=== PATIENT | female | born 1955 | race Caucasian/White ===

== ENCOUNTER 2017-05-20 09:09 | Day surgery (SDC) | payer BC ==
[~2017-05-20 09:09] MED LIST: Acetaminophen TAB* 325 MG PO PRN; Buffered Lidocaine 0.9% SYRIN* 5 ML/SYR SYRINGE INTRADERM ONE
[2017-05-20] MEDS ORDERED: Midazolam* 1 MG/ML 2 ML VIAL (2 MG) ONE (10:32)
[2017-05-20 12:12] VITALS: BP 119/76
[2017-05-20] MEDS ORDERED: Lidocaine 1% MPF* 2 ML VIAL ONE (14:51)
[2017-05-20] MEDS ORDERED: Cyclopentolate 1% OPTH.SOL* 2 ML BTL ONE (14:51)
[2017-05-20] MEDS ORDERED: Buffered Lidocaine 0.9% SYRIN* 5 ML/SYR SYRINGE ONE (14:51)
[2017-05-20] MEDS ORDERED: Neomycin/Polymy/Dex OPHTH.OIN* 3.5 GM ONE (14:51)
[2017-05-20] MEDS ORDERED: acetaZOLAMIDE TAB* 250 MG ONE (14:51)
[2017-05-20] MEDS ORDERED: Tetracaine 0.5% OPTH.SOL 4 ML* 1 DROP BTL ONE (14:51)
[2017-05-20] MEDS ORDERED: Tropicamide 1% OPTH.SOL* BTL ONE (14:51)
[2017-05-20] MEDS ORDERED: Phenylephrine 2.5% OPTH.SOL* 2 ML BTL ONE (14:51)
[2017-05-20] MEDS ORDERED: Povidone Iodine 5% OPTH* 30 ML BTL ONE (14:51)
[2017-05-20] MEDS ORDERED: Ketorolac 0.5% OPHTH (NF) 0.5 % 5 ML BTL ONE (14:51)
--- NOTE | 2017-05-21 00:43 | OP ---
DATE OF OPERATION: 05/20/17 [facility] DATE OF : 53 SURGEON: Kameron Chambers MD ANESTHESIOLOGIST: Griffin Thomas MD ANESTHESIA: MAC PRE-OP DIAGNOSIS: Cataract, left eye. POST-OP DIAGNOSIS: Cataract, left eye. PROCEDURE PERFORMED: Cataract surgery of the left eye. ANESTHESIA: Monitored anesthesia care. IMPLANTS: SN60WF 20.5 diopter lens to the left eye. COMPLICATIONS: None. DESCRIPTION OF PROCEDURE: The patient was given phenylephrine 2.5% and cyclopentolate 1% eye drops to the operative eye in the preoperative area. The patient was brought to the operating room where a time-out was taken to identify the correct patient, site, and side of the surgery. The patient's left eye was prepped and draped in the usual sterile fashion with 5% Betadine. A second time- out was taken to verify the correct patient, site and side of the surgery, and correct lens selection. A lid speculum was placed to the left eye. A 1-mm paracentesis blade was used to make a clear corneal incision in the inferotemporal position. Preservative-free 1% lidocaine was injected into the anterior chamber. DisCoVisc was then injected into the anterior chamber. A 2.75-mm keratome blade was used to make a triplanar incision at the superotemporal position. A cystotome initiated a capsulorrhexis, which was completed with Utrata forceps in a continuous and curvilinear manner. Hydrodissection of the lens was performed with BSS on a cannula. The lens could be spun in the capsular bag. The phacoemulsification handpiece was used with a [id number] technique to remove the nucleus in its entirety with 8.13 CDE. The I/A handpiece then removed the residual cortical lens material. DisCoVisc was injected to inflate the capsular bag. The planned SN60WF 20.5 diopter lens was injected into the capsular bag. The residual DisCoVisc was removed from the eye with the I/A handpiece. The corneal incisions were hydrated and no leaks occurred at physiologic pressure around 20 mmHg per palpation. The lid speculum was removed and drapes removed. Maxitrol ointment was placed on the surface of the operative eye. An adhesive patch and shield was placed on the operative eye. The patient was taken to the postoperative area in stable condition. [id number]/[facility] #: [id number] MTDPatric
== END 2017-05-20 12:05 | disposition home or self-care (01) ==
LOC: OREAST 09:09
PROVIDERS: ATTEND Student in an Organized Health Care Education/Training Program
DX: H25.12 Age-related nuclear cataract, left eye (principal); H04.123 Dry eye syndrome of bilateral lacrimal glands; I95.1 Orthostatic hypotension
CPT/HCPCS: A9270-GY; J2250; V2632

== ENCOUNTER 2017-05-29 08:46 | Day surgery (SDC) | payer BC ==
[2017-05-29] MEDS ORDERED: fentaNYL* 50 MCG/ML 2 ML VIAL (100 MCG VIAL) ONE (09:30)
[2017-05-29] MEDS ORDERED: Midazolam* 1 MG/ML 2 ML VIAL (2 MG) ONE (09:30)
[2017-05-29] MEDS ORDERED: Ondansetron INJ* 2 MG/ML VIAL ONE (10:32)
[2017-05-29] MEDS ORDERED: Cyclopentolate 1% OPTH.SOL* 2 ML BTL ONE (10:55)
[2017-05-29] MEDS ORDERED: Phenylephrine 2.5% OPTH.SOL* 2 ML BTL ONE (10:55)
[2017-05-29] MEDS ORDERED: Lidocaine 1% MPF* 2 ML VIAL ONE (10:55)
[2017-05-29] MEDS ORDERED: Tetracaine 0.5% OPTH.SOL 4 ML* 1 DROP BTL ONE (10:55)
[2017-05-29] MEDS ORDERED: acetaZOLAMIDE TAB* 250 MG ONE (10:55)
[2017-05-29] MEDS ORDERED: Neomycin/Polymy/Dex OPHTH.OIN* 3.5 GM ONE (10:55)
[2017-05-29] MEDS ORDERED: Povidone Iodine 5% OPTH* 30 ML BTL ONE (10:55)
[2017-05-29] MEDS ORDERED: Tropicamide 1% OPTH.SOL* BTL ONE (10:55)
[2017-05-29] MEDS ORDERED: Flurbiprofen 0.03% OPTH.SOL* 2.5 ML BTL ONE (10:55)
[2017-05-29] MEDS ORDERED: Buffered Lidocaine 0.9% SYRIN* 5 ML/SYR SYRINGE ONE (10:55)
[2017-05-29 10:56] VITALS: BP 109/80
--- NOTE | 2017-05-29 14:25 | OP ---
DATE OF OPERATION: 05/29/17 - [facility] DATE OF : 53 SURGEON: Kameron Chambers MD ANESTHESIOLOGIST: Dr. Bass ANESTHESIA: Monitored anesthesia care. PRE-OP DIAGNOSIS: Cataract, right eye. POST-OP DIAGNOSIS: Cataract, right eye. OPERATIVE PROCEDURE: Cataract surgery of right eye. IMPLANTS: SN60WF 20.0 diopter lens to the right eye. COMPLICATIONS: None. DESCRIPTION OF PROCEDURE: The patient was given phenylephrine 2.5% and cyclopentolate 1% eye drops to the operative eye in the preoperative area. The patient was brought to the operating room, where a time-out was taken to identify the correct patient, site, and side of surgery. The patient's right eye was prepped and draped in the usual sterile fashion with 5% Betadine. A second time- out was taken to verify the correct patient, site, and side of surgery and correct lens selection. A lid speculum was placed to the right eye. A 1-mm paracentesis blade was used to make a clear corneal incision in the superotemporal position. Preservative-free 1% lidocaine was injected into the anterior chamber. DisCoVisc was then injected into the anterior chamber. A 2.75-mm keratome blade was used to make a triplanar incision at the inferotemporal position. A cystotome initiated a capsulorrhexis, which was completed with Utrata forceps in a continuous and curvilinear manner. Hydrodissection of the lens was performed with BSS on a cannula. The lens could be spun in the capsular bag. The phacoemulsification handpiece was used with a [id number] technique to remove the nucleus in its entirety with 7.19 CDE. The I/A handpiece then removed the residual cortical lens material. DisCoVisc was injected to inflate the capsular bag. The planned SN60WF 20.0 diopter lens was then injected into the capsular bag. The residual DisCoVisc was removed from the eye with the I/A handpiece. The corneal incisions were hydrated and no leaks occurred at physiologic pressure around 20 mmHg per palpation. The lid speculum was removed and drapes removed. Artificial tear ointment was placed to the surface of the operative eye. An adhesive patch and shield was then placed on the operative eye. The patient was taken to the postoperative area in stable condition. [id number]/[facility] #: [id number] MTDPatric
== END 2017-05-29 10:52 | disposition home or self-care (01) ==
LOC: OREAST 08:46
PROVIDERS: ATTEND Student in an Organized Health Care Education/Training Program
DX: H25.11 Age-related nuclear cataract, right eye (principal); Z96.1 Presence of intraocular lens; H04.123 Dry eye syndrome of bilateral lacrimal glands; G43.909 Migraine, unspecified, not intractable, without status migrainosus; F32.9 Major depressive disorder, single episode, unspecified; I95.1 Orthostatic hypotension
CPT/HCPCS: A9270-GY; J2250; J2405; J3010; V2632

== ENCOUNTER 2017-11-10 16:29 | Inpatient (IN) | payer BC ==
[2017-11-10 18:05] LABS: ABS Basophils 0.1 10^3/ul (0-0.2); ABS Eosinophils 0.2 10^3/ul (0-0.6); ABS Lymphocytes 1.5 10^3/ul (1.0-4.8); ABS Monocytes 0.8 10^3/ul (0-0.8); ABS Neutrophils 4.4 10^3/ul (1.5-7.7); ABS Nucleated RBC 0 10^3/ul; Eosinophil % 2.8 % (0-6); Hematocrit 37 % (35-47); Hemoglobin 12.3 g/dl (12.0-16.0); Lymphocyte % 21.8 % (25-47); Mean Corpuscular HGB Conc 34 g/dl (31-36); Mean Corpuscular Hemoglobin 32 pg (27-31); Mean Corpuscular Volume 95 fL (80-97); Mean Platelet Volume 9 um3 (7.4-10.4); Nucleated Red Blood Cells % 0.1; Platelet Count 257 10^3/ul (150-450); Red Blood Count 3.85 10^6/ul (4.0-5.4); Red Cell Distribution Width 13 % (10.5-15)
[2017-11-10 18:19] LABS: EGFR Non-African American 53.5 (>60)
[2017-11-10 19:04] LABS: Urine Appearance Clear; Urine Blood Negative (Negative); Urine Color Straw; Urine Ketones Negative (Negative); Urine Protein Negative (Negative); Urine Specific Gravity 1.006 (1.010-1.030); Urine Urobilinogen Negative (Negative)
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
--- NOTE | 2017-11-11 01:02 | ED ---
Rachel Go Abhishek, scribed for Sherry Johnson MD on 11/11/17 at 0032 . Progress - Progress Note Progress Note: The pt was signed out from Dr. Reyna and was pending mental health evaluation. Upon completing MHE, the pt will be dx with psychosis NOS. The pt will be discharged home. - Consult/PCP Time Called: 19:29 Course/Dx - Diagnoses Provider Diagnoses: Unspecified psychosis The documentation as recorded by the Rachel santiago Abhishek accurately reflects the service I personally performed and the decisions made by Alex mcdonnell Abdul, MD.
[2017-11-11] MEDS ORDERED: Al Hydrox/Mg Hydrox/Simet LIQ* 30 ML UDC PO PRN (01:53)
[2017-11-11] MEDS ORDERED: Haloperidol TAB* 5 MG PO ONE (02:00)
[2017-11-11] MEDS: Acetaminophen TAB* 325 MG PO PRN ×3 (05:23→21:28)
[2017-11-11] MEDS: Vitamin THERAPEUTIC TAB PO SCH (07:53)
--- NOTE | 2017-11-11 19:35 | HP ---
HISTORY AND PHYSICAL: DATE OF ADMISSION: 11/11/17 ATTENDING PROVIDER: Dr. Junior * (DICTATED BY AUBREY GR, PACO) JUSTIFICATION FOR ADMISSION: Safety: Stacia is struggling with psychosis and poor judgment. CHIEF COMPLAINT: "I am still messed up, I feel like I should be here for a while." HISTORY OF PRESENT ILLNESS: Stacia is a 62-year-old white female for 30 plus years, brought in by her to the emergency room due to significant concerns from her daughter and her about her increasingly disorganized thoughts.. She had been staying with her daughter in [place], [place], which is about an hour from [place], where her daughter works. What first alarmed her daughter, who she was staying with, was that she had been starting to try to put together a new given name for herself by putting together different pieces of names of other people in her family. This is not unique to her thought pattern; she likes to put together different pieces of poetry and different pieces of words and books to try to create transcendent pieces of information and meaningfulness. Nevertheless, it is unclear how successful she is in achieving this goal. Upon interview, she has slow speech. She has difficulty finding words. She does not really make a lot of sense. She has a goal of painting and reading. She said that after she had cataract surgery recently, she was able to read afterward. Another aspect of her presentation is that she describes paranoia, which has somewhat resolved. She said that she believes others were her enemies, but now she knows they were trying to help. Still, she does report feeling ill and she also states "I am not crazy." Stacia has been reported by her to not have been at her psychiatric baseline for the last two years. She has not been functioning well, he says. Her daughter has also noticed this and noticed an exacerbation of symptoms when Stacia was visiting her. Her daughter brought her back to Stacia's , concerned about her mom's behavior. From her daughter's reaction to her mother's bizarre behavior, it would appear that this is a significant variation from typical behavior. Her primary care doctor followed her treatment with perphenazine 8 mg following her latest (2008) admission to the [facility]. Stacia believed that it was getting in the way of her ability to create art, so she asked to have it halved and then discontinued. The timeline for this discontinuation is not clear; nevertheless, it has led to this admission. Stacia's brought her to the Emergency Department. The concerning behaviors included the desire to create a new name, a bizarre belief discovered by a member of staff that she is considering removing breast implants from when she was age 32 to so that she can deliver the eucharist in her most original body, her tendency to try to connect sentences which are nearly coherent into incoherent paragraphs, retarded speech, and very abstract topics that lack pertinence to the topic at hand. She denies hearing or seeing things that aren't there. PAST MEDICAL HISTORY: She has had cataract surgery in both eyes. PSYCHIATRIC HISTORY: She has been inpatient in psychiatry 2 times, once in 2007 and once in 2008. In 2007, she had an overdose of Tylenol and received a diagnosis of depression. In 2008, she was given a psychosis diagnosis. She was advised to follow up in the community with Yelitza Cloud, PACO, PhD, but she thought she didn't need psychiatric services and that seeing Yelitza Cloud was too expensive. She has not been psychiatrically medicated since that discontinuation from Dr. Kiser mentioned in the HPI. She denies using tobacco, excessive alcohol, or illicit drugs. She has not been suicidal since her 2007 admission and has never been violent or homicidal. She denies that there has ever been physical, emotional, or sexual abuse in her life. SOCIAL HISTORY: From previous H and P's, she finished high school, but she had a difficult time there. She has had various jobs that have not gone well, as she perseverates on details that are not relevant to the task at hand. She has been to her for more than 30 years and has two children, one a daughter who lives 3-4 hours away in [place], [place] where she visits her. 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 She began reading voraciously after her cataract surgery. She collects quotes from her readings to put together in order to make an even more inspiring text than the classics she's reading. She is spiritually active, at least at this time, taking solace in a visit from the anesthesiology medical doctor here on the [facility]. MENTAL STATUS EXAM: Stacia is casually groomed. She has long blondish- lima miranda that she plays with. She appears to be a little bit confused. She is sitting quite still, slow movements. She is very cooperative with me, very pleasant. Her speech is slow. Her volume is a little bit low. She talks maybe a little circumstantially. She has a labile affect. She was crying in the milieu before I met with her, but then she was very happy and wanted to sit in the sun and described enjoying the sunshine most of the time. Her thought processes are not clear. She is struggling to put thoughts together. She has very little insight into what she is doing other than having a goal of wanting to paint again. She denies being homicidal or suicidal. She is not having any hallucinations. She knows that there is something wrong with her thoughts and the way she feels. Her insight is reasonably good. Her judgment on the other hand, is impaired. She is alert and oriented. She is awake, but she is sleepy. I suspect her intellect may be average to low as she is struggling with words as well as it having been noted/questioned in previous H and P's. PHYSICAL EXAMINATION Please refer to the ER exam and laboratory data that was obtained less than 24 hours ago. Diagnosis: Redfox I: Schizophrenia Redfox II: deferred Assessment: 62-y.o. white female with a history of both depression and psychosis who returns to the hospital behavioral unit after two prior admissions in 2007 and 2008. She presents with psychosis: bizarre beliefs, some difficulty speaking coherently (sentences trail off and the meaning is not cohesive). Her current focus is to create a new name for herself based on pieces of names of her family. She is also interested in beginning to work on her art again. Plan: Admit to unit with q15 minute safety checks, full code. 9.39 status. Stacia is encouraged to participate in supportive and milieu therapy. Estimated length of stay is 5-10 days. Medications will be titrated to more effective dose and she will be monitored for mood and thought content. Discharge planning will include family involvement and obtaining outpatient providers. We will begin Abilify (aripiprazole) 5 mg qHS to address psychotic symptoms. AUBREY GR, TUMOR REGISTRAR [id number]/[facility] #: [id number] [facility]ANG[facility] TISCH HOSPITALPatric
[2017-11-11] MEDS: ARIPiprazole TAB* 5 MG PO SCH (21:28)
[2017-11-12] MEDS: Vitamin THERAPEUTIC TAB PO SCH (08:44)
--- NOTE | 2017-11-12 13:44 | PN ---
Subjective - Subjective Date of Service: 11/12/17 Service Type: 01355 Hosp care 15 min low complexity Subjective: Laurel, who is now asking to be called "Friend" until she constructs a new name, reports doing well this afternoon. She is preoccupied with thoughts of her daughter (an equine nurse) and her , Alana. She reports feeling clearer "in my head" but that is highly unlikely considering that she took only 5 mg of Abilify once last night. When asked what her concerns are, she is primarily concerned with Alana's mental health care. She is also worried that she will not longer be able to see Dr. Kiser. This morning, a staff member reported that she was concerned about "delivering the eucharist." She didn't mention this or any concerns about herself, despite being asked directly. She remains happy enough, likes talking on the phone, and is quite difficult to keep on track. Psychosis persists. Objective - Appearance Dysmorphic Features: No Hygiene: Normal Grooming: Fairly Well Kept - Behavior Psychomotor Activities: Normal Exhibits Abnormal Movement: No - Attitude and Relatedness Attitude and Relatedness: Cooperative Eye Contact: Good - Speech Quality: Unpressured Latencies: Short Quantity: Appropriate - Mood Patient's Decription of Mood: "Great" - Affect Observed Affect: Good Affect Consistent with: Euthymia - Thought Process Patient's Thought Process: Loose Associations Thought Content: No Passive Wish, No Suicidal Planning, No Homicidal Ideation, No Paranoid Ideation - Sensorium Experiencing Hallucinations: No, Sensorium is Clear Type of Hallucinations: Visual: No, Auditory: No, Command: No - Level of Consciousness Level of Consciousness: Alert Orientation: Yes Intact, Yes Orientated to Time, Yes Orientated to Place, Yes Orientated to Person - Impulse Control Impulse Control: Intact - Insight and Judgement Insight and Judgement: Impaired - Group Participation Particating in Group Activities: Yes - Medication Management Medication Management Adherence: Yes Plan - Plan Treatment Plan: Name: LAUREL DUDLEY Birthdate: 1955 [id number] Medications: Current Medications Acetaminophen (Tylenol Tab*) 650 mg PO Q4H PRN PRN Reason: PAIN or TEMP > 101 F Last Admin: 11/11/17 21:28 Dose: 650 mg Al Hydrox/Mg Hydrox/Simethicone (Maalox Plus*) 30 ml PO Q4H PRN PRN Reason: INDIGESTION Aripiprazole (Abilify Tab*) 5 mg PO BEDTIME [facility] Last Admin: 11/11/17 21:28 Dose: 5 mg Multivitamins (Theragran Tab*) 1 tab PO DAILY [facility] Last Admin: 11/12/17 08:44 Dose: 1 tab - Discharge Plan Discharge Plan: Outpatient Follow Up Outpatient Program: [facility]
[2017-11-12] MEDS: ARIPiprazole TAB* 5 MG PO SCH (19:42)
[2017-11-13] MEDS: Vitamin THERAPEUTIC TAB PO SCH (09:07)
[2017-11-13] MEDS: Artificial Tears* 15 ML BTL BOTH EYES PRN (12:15)
--- NOTE | 2017-11-13 13:08 | PN ---
MHU: Group Therapy Note - Service Type Service Type: [id number] Group Psychotherapy - Cognitive Behavioral Group Therapy ( CBT):Patient was attentive and participatory in CBT programming this morning, and remained in good behavioral control. Patient expressed positive insights regarding relevant treatment interventions and goals.
--- NOTE | 2017-11-13 16:16 | PN ---
Subjective - Subjective Service Type: [id number] Hosp care 15 min low complexity Subjective: Laurel, who is now going by Tom, I believe, appears to have her thoughts clearing a bit. She is quite supported by her and she talks about him a lot. We discuss increasing her Abilify to 10 mg and discuss pros and cons of the medication. She is agreeable to the change and eager to have clearer thoughts. We talked about using Abilify as a method of doing that. She also reports feeling depressed. Objective - Appearance Appearance: Well Developed/Nourished Dysmorphic Features: No Hygiene: Normal Grooming: Fairly Well Kept - Behavior Psychomotor Activities: Normal Exhibits Abnormal Movement: No - Attitude and Relatedness Attitude and Relatedness: Cooperative Eye Contact: Good - Speech Quality: Unpressured Latencies: Short Quantity: Appropriate - Mood Patient's Decription of Mood: "Good" - Affect Affect Consistent with: Euthymia - Thought Process Thought Content: No Passive Wish, No Suicidal Planning, No Homicidal Ideation, No Paranoid Ideation - Sensorium Experiencing Hallucinations: No, Sensorium is Clear Type of Hallucinations: Visual: No, Auditory: No, Command: No - Level of Consciousness Level of Consciousness: Alert Orientation: Yes Intact, Yes Orientated to Time, Yes Orientated to Place, Yes Orientated to Person - Impulse Control Impulse Control: Intact - Insight and Judgement Insight and Judgement: Fair - Group Participation Particating in Group Activities: Yes - Medication Management Medication Management Adherence: Yes Assessment - Assessment Merits Inpatient Hospitalization: For Stabilization Plan - Plan Treatment Plan: Name: LAUREL DUDLEY Birthdate: 1955 [id number] Continue acute intensive psychiatric treatment. Medications: Current Medications Acetaminophen (Tylenol Tab*) 650 mg PO Q4H PRN PRN Reason: PAIN or TEMP > 101 F Last Admin: 11/11/17 21:28 Dose: 650 mg Al Hydrox/Mg Hydrox/Simethicone (Maalox Plus*) 30 ml PO Q4H PRN PRN Reason: INDIGESTION Aripiprazole (Abilify Tab*) 10 mg PO BEDTIME [facility] Multivitamins (Theragran Tab*) 1 tab PO DAILY [facility] Last Admin: 11/13/17 09:07 Dose: 1 tab Polyvinyl Alcohol (Polyvinyl Alcohol 1.4% Opth*) 1 drop BOTH EYES Q2H PRN PRN Reason: DRY EYE Last Admin: 11/13/17 12:15 Dose: 2 drp - Discharge Plan Discharge Plan: Outpatient Follow Up
[2017-11-13] MEDS: ARIPiprazole TAB* 5 MG PO SCH (20:17)
[2017-11-14] MEDS: Vitamin THERAPEUTIC TAB PO SCH (08:08)
--- NOTE | 2017-11-14 10:54 | PN ---
Subjective - Subjective Service Type: Collateral from Artemio, Subjective: Artemio, Laurel's , requested that I call him ([phone]). In a 30 minute phone call he expressed his concern about her. Highlights of the conversation include the following: Name change to Laurel was an attempt to bury an unpleasant past. Her son-in-law's ~2 years ago is still bothering her significantly and she is emotionally triggered by seeing things like emergency vehicles. Laurel likes to "[knit] together a narrative that is totally irrational" of reality and literature. Artemio is very concerned that she is having suicidal thoughts, although Laurel denies it vehemently to Artemio. She misses having family and longs to have a friend group as she did years ago. This is echoed by Laurel herself in conversation. Artemio reports that Dr. Kiser is afraid of him because he is verbally combative when he is trying to advocate for her. He worries that he is not sensitive enough to her. He used to be a administrative technician and engage in spending time with a motorcycle club. Plan - Plan Treatment Plan: Name: LAUREL DUDLEY Birthdate: 1955 [id number] Continue acute intensive psychiatric treatment. Medications: Current Medications Acetaminophen (Tylenol Tab*) 650 mg PO Q4H PRN PRN Reason: PAIN or TEMP > 101 F Last Admin: 11/11/17 21:28 Dose: 650 mg Al Hydrox/Mg Hydrox/Simethicone (Maalox Plus*) 30 ml PO Q4H PRN PRN Reason: INDIGESTION Aripiprazole (Abilify Tab*) 10 mg PO BEDTIME [facility] Last Admin: 11/13/17 20:17 Dose: 10 mg Multivitamins (Theragran Tab*) 1 tab PO DAILY [facility] Last Admin: 11/14/17 08:08 Dose: 1 tab Polyvinyl Alcohol (Polyvinyl Alcohol 1.4% Opth*) 1 drop BOTH EYES Q2H PRN PRN Reason: DRY EYE Last Admin: 11/13/17 12:15 Dose: 2 drp
[2017-11-14] MEDS: Acetaminophen TAB* 325 MG PO PRN (13:49)
--- NOTE | 2017-11-14 16:16 | PN ---
Subjective - Subjective Date of Service: 11/14/17 Service Type: [id number] Hosp care 25 min moderate complexity Subjective: Stacia, who is apparently in the process of changing her name although which name has not been nailed down, is cheerful and pleasant in conversation. Her , Artemio, comes in from 08-30 to visit with Stacia and continues to want additional support. She would like to be discharged today. We compromise on the option to leave tomorrow. She is not reporting hallucinations to me. Her thoughts are clearer and she is motivated to go home to her studio and create art. She wants to use pastels rather than the acrylics and oils she'd used before. She is also considering using watercolors, but believes it would be better to use something that she's familiar with. Objective - Appearance Appearance: Well Developed/Nourished Dysmorphic Features: No Hygiene: Normal Grooming: Fairly Well Kept - Behavior Psychomotor Activities: Normal Exhibits Abnormal Movement: No - Attitude and Relatedness Attitude and Relatedness: Child Like Eye Contact: Good - Speech Quality: Unpressured Latencies: Short Quantity: Appropriate - Mood Patient's Decription of Mood: "Great" - Affect Observed Affect: Expansive Affect Consistent with: Euthymia - Thought Process Patient's Thought Process: Coherent, Goal Directed Thought Content: No Passive Wish, No Suicidal Planning, No Homicidal Ideation, No Paranoid Ideation - Sensorium Experiencing Hallucinations: No, Sensorium is Clear Type of Hallucinations: Visual: No, Auditory: No, Command: No - Level of Consciousness Level of Consciousness: Alert Orientation: Yes Intact, Yes Orientated to Time, Yes Orientated to Place, Yes Orientated to Person - Impulse Control Impulse Control: Intact - Insight and Judgement Insight and Judgement: Fair - Group Participation Particating in Group Activities: Yes - Medication Management Medication Management Adherence: Yes Assessment - Assessment Merits Inpatient Hospitalization: For Stabilization Clinical Impression: Patricas latencies are shorter and fewer. Her train of thought is more linear, although there are still some oddities to her topic choice which is likely consistent with her speech when she is well. Her thoughts are clearing and she describes having a clearer head. She is also requesting discharge. Plan - Plan Treatment Plan: Name: STACIA DUDLEY Birthdate: 1955 [id number] Continue acute intensive psychiatric treatment. Medications: Current Medications Acetaminophen (Tylenol Tab*) 650 mg PO Q4H PRN PRN Reason: PAIN or TEMP > 101 F Last Admin: 11/14/17 13:49 Dose: 650 mg Al Hydrox/Mg Hydrox/Simethicone (Maalox Plus*) 30 ml PO Q4H PRN PRN Reason: INDIGESTION Aripiprazole (Abilify Tab*) 10 mg PO BEDTIME [facility] Last Admin: 11/13/17 20:17 Dose: 10 mg Fludrocortisone Acetate (Florinef Tab*) 0.2 mg PO DAILY [facility] Multivitamins (Theragran Tab*) 1 tab PO DAILY [facility] Last Admin: 11/14/17 08:08 Dose: 1 tab Polyvinyl Alcohol (Polyvinyl Alcohol 1.4% Opth*) 1 drop BOTH EYES Q2H PRN PRN Reason: DRY EYE Last Admin: 11/13/17 12:15 Dose: 2 drp Sertraline HCl (Zoloft*) 100 mg PO DAILY [facility] - Discharge Plan Discharge Plan: Outpatient Follow Up
--- NOTE | 2017-11-14 16:54 | PN ---
MHU: Group Therapy Note - Service Type Service Type: [id number] Group Psychotherapy - Medication Education Group: Patient was attentive and participatory in group, and remained in good behavioral control. Patient expressed positive insights regarding relevant treatment interventions. Patient stated understanding of material discussed and had appropriate questions.
[2017-11-14] MEDS: ARIPiprazole TAB* 5 MG PO SCH (20:54)
[2017-11-14] MEDS: Artificial Tears* 15 ML BTL BOTH EYES PRN (20:54)
[2017-11-15] MEDS: Sertraline* 100 MG TAB PO SCH (08:55)
[2017-11-15] MEDS: Fludrocortisone Acetate TAB* 0.1 MG PO SCH (08:55)
[2017-11-15] MEDS: Vitamin THERAPEUTIC TAB PO SCH (08:55)
[2017-11-15] MEDS: Artificial Tears* 15 ML BTL BOTH EYES PRN (11:00)
--- NOTE | 2017-11-15 17:46 | PN ---
Subjective - Subjective Service Type: 45711 Hosp care 25 min moderate complexity Subjective: Spoke with Laurel and her regarding the need to stay over the weekend and into Saturday, with the earliest discharge at noon on Saturday,, but to be re-evaluated at that time. Laurel was agreeable to the weekend stay, as was her . Also, she was agreeable to starting 300 mg of Abilify Maintena tonight. She is pleased to be observed while she is experiencing potential side effects of the new medication. She is reported to have been somewhat disorganized in groups today. She is pleasant and seems quite happy. She was delighted to see her . Objective - Appearance Appearance: Well Developed/Nourished Dysmorphic Features: No Hygiene: Normal Grooming: Fairly Well Kept - Behavior Psychomotor Activities: Normal Exhibits Abnormal Movement: No - Attitude and Relatedness Attitude and Relatedness: Cooperative Eye Contact: Good - Speech Quality: Unpressured Latencies: Normal Quantity: Appropriate - Mood Patient's Decription of Mood: "Great" - Affect Observed Affect: Expansive Affect Consistent with: Euthymia - Thought Process Thought Content: No Passive Wish, No Suicidal Planning, No Homicidal Ideation, No Paranoid Ideation - Sensorium Experiencing Hallucinations: No, Sensorium is Clear - Level of Consciousness Level of Consciousness: Alert Orientation: Yes Intact, Yes Orientated to Time, Yes Orientated to Place, Yes Orientated to Person - Impulse Control Impulse Control: Intact - Insight and Judgement Insight and Judgement: Impaired - Group Participation Particating in Group Activities: Yes - Medication Management Medication Management Adherence: Yes Assessment - Assessment Merits Inpatient Hospitalization: For Stabilization, For Ongoing Evaluation Clinical Impression: Laurel's latencies are shorter and fewer. Her train of thought is more linear, although there are still some oddities to her topic choice which is likely consistent with her speech when she is well. Her thoughts are clearing and she describes having a clearer head. She is also requesting discharge. Plan - Plan Treatment Plan: Name: LAUREL DUDLEY Birthdate: 1955 [id number] Continue acute intensive psychiatric treatment. Continued Medication Management: Different Medication Medications: Current Medications Acetaminophen (Tylenol Tab*) 650 mg PO Q4H PRN PRN Reason: PAIN or TEMP > 101 F Last Admin: 11/14/17 13:49 Dose: 650 mg Al Hydrox/Mg Hydrox/Simethicone (Maalox Plus*) 30 ml PO Q4H PRN PRN Reason: INDIGESTION Aripiprazole (Abilify Tab*) 10 mg PO BEDTIME [facility] Last Admin: 11/14/17 20:54 Dose: 10 mg Aripiprazole (Abilify Maintena (Nf)) 300 mg IM Q28D [facility] Fludrocortisone Acetate (Florinef Tab*) 0.2 mg PO DAILY [facility] Last Admin: 11/15/17 08:55 Dose: 0.2 mg Multivitamins (Theragran Tab*) 1 tab PO DAILY [facility] Last Admin: 11/15/17 08:55 Dose: 1 tab Polyvinyl Alcohol (Polyvinyl Alcohol 1.4% Opth*) 1 drop BOTH EYES Q2H PRN PRN Reason: DRY EYE Last Admin: 11/15/17 11:00 Dose: 1 drp Sertraline HCl (Zoloft*) 100 mg PO DAILY [facility] Last Admin: 11/15/17 08:55 Dose: 100 mg - Discharge Plan Discharge Plan: Outpatient Follow Up
[2017-11-15] MEDS: ARIPiprazole TAB* 5 MG PO SCH (20:05)
[2017-11-16] MEDS: Fludrocortisone Acetate TAB* 0.1 MG PO SCH (08:09)
[2017-11-16] MEDS: Vitamin THERAPEUTIC TAB PO SCH (08:09)
[2017-11-16] MEDS: Sertraline* 100 MG TAB PO SCH (08:09)
[2017-11-16] MEDS: Acetaminophen TAB* 325 MG PO PRN (12:17)
[2017-11-16] MEDS: ARIPiprazole TAB* 5 MG PO SCH (20:34)
[2017-11-17] MEDS: Acetaminophen TAB* 325 MG PO PRN (07:40)
[2017-11-17] MEDS: Fludrocortisone Acetate TAB* 0.1 MG PO SCH (07:40)
[2017-11-17] MEDS: Vitamin THERAPEUTIC TAB PO SCH (07:40)
[2017-11-17] MEDS: Sertraline* 100 MG TAB PO SCH (07:40)
[2017-11-17] MEDS: Benzocaine/Menthol LOZ* 1 LOZENGE PO PRN (13:12)
[2017-11-17] MEDS: ARIPiprazole TAB* 5 MG PO SCH (20:53)
[2017-11-18] MEDS: Acetaminophen TAB* 325 MG PO PRN (04:50)
[2017-11-18] MEDS: Artificial Tears* 15 ML BTL BOTH EYES PRN (04:50)
[2017-11-18 07:43] VITALS: BP 120/76
[2017-11-18] MEDS: Fludrocortisone Acetate TAB* 0.1 MG PO SCH (08:20)
[2017-11-18] MEDS: Sertraline* 100 MG TAB PO SCH (08:20)
[2017-11-18] MEDS: Vitamin THERAPEUTIC TAB PO SCH (08:20)
[2017-11-18] MEDS: Benzocaine/Menthol LOZ* 1 LOZENGE PO PRN (08:21)
--- NOTE | 2017-11-18 11:36 | PN ---
MHU: Group Therapy Note - Service Type Service Type: [id number] Group Psychotherapy - Cognitive Behavioral Group Therapy ( CBT):Patient was attentive and participatory in CBT programming this morning, and remained in good behavioral control. Patient expressed positive insights regarding relevant treatment interventions and goals.
--- NOTE | 2017-11-18 13:04 | DS ---
Treatment Course & Assessment Clinical Course & Impression: Stacia's latencies are shorter and fewer. Her train of thought is more linear, although there are still some oddities to her topic choice which is likely consistent with her speech when she is well. Her thoughts are clearing and she describes having a clearer head. She is also requesting discharge. Discharge Planning - Discharge Planning Medications: Current Medications Acetaminophen (Tylenol Tab*) 650 mg PO Q4H PRN PRN Reason: PAIN or TEMP > 101 F Last Admin: 11/18/17 04:50 Dose: 650 mg Al Hydrox/Mg Hydrox/Simethicone (Maalox Plus*) 30 ml PO Q4H PRN PRN Reason: INDIGESTION Aripiprazole (Abilify Tab*) 10 mg PO BEDTIME [facility] Last Admin: 11/17/17 20:53 Dose: 10 mg Aripiprazole (Abilify Maintena (Nf)) 300 mg IM Q28D [facility] Last Admin: 11/15/17 20:07 Dose: 300 mg Fludrocortisone Acetate (Florinef Tab*) 0.2 mg PO DAILY [facility] Last Admin: 11/18/17 08:20 Dose: 0.2 mg Multivitamins (Theragran Tab*) 1 tab PO DAILY [facility] Last Admin: 11/18/17 08:20 Dose: 1 tab Polyvinyl Alcohol (Polyvinyl Alcohol 1.4% Opth*) 1 drop BOTH EYES Q2H PRN PRN Reason: DRY EYE Last Admin: 11/18/17 04:50 Dose: 1 drp Sertraline HCl (Zoloft*) 100 mg PO DAILY [facility] Last Admin: 11/18/17 08:20 Dose: 100 mg Throat Lozenges (Chloraseptic Darshan*) 1 darshan PO Q6H PRN PRN Reason: SORE THROAT Last Admin: 11/18/17 08:21 Dose: 1 darshan Discharge Planning: Prescriptions provided for discharge [] Yes [] No Follow up care details as per social work arrangements. Patient response to discharge plan: [] eager for discharge [] agreeable with discharge plan [] ambivalent about discharge [] disagrees with discharge today
--- NOTE | 2017-11-19 05:54 | DS ---
DISCHARGE SUMMARY: DATE OF ADMISSION: 11/11/17 DATE OF DISCHARGE: 11/18/17 ATTENDING PROVIDER: Dr. Junior * (dictated by Amita Flores, PACO). DISCHARGE DIAGNOSES: Clifford I: Schizophrenia. Clifford II: Deferred. CONDITION AT THE TIME OF DISCHARGE: Stacia is much improved. She is psychiatrically cleared. She is stable. She participated in groups, she was social with her peers. Her family, her who alternatively goes by Artemio and Kavon, was agreeable to her discharge, although somewhat reluctant given that she is still mildly symptomatic, although safe. Stacia has done well here psychiatrically. She tolerated Abilify very well. She also agreed to a long- acting injection of Abilify. She is going to go to [facility] and she is going to get an injection of Abilify Maintena 300 mg and that is due on the 12/16/17. MENTAL STATUS EXAM: At the time of discharge, the patient is a 62-year-old woman who is calm and cooperative, her eye contact is reasonably good. She is alert and oriented x3. Her grooming is fair to good. She is braiding and unbraiding her hair and seems quite comfortable doing that. Her speech is of a normal pace. Her thought processes may be a little circuitous, but she is logical. Her thought content is concerned with her art and poetry as well as her past and the traumatic event of her son-in-law killed in an accident. She is not paranoid. She does not appear delusional, although she is eccentric and tends to string unrelated ideas together in poetry and art. She denies auditory and visual hallucinations. Her insight and judgement are fair. She is very willing to follow up with a psychiatrist or nurse practitioner at [facility] and she has been urged to see a therapist. DISCHARGE INSTRUCTIONS TO THE PATIENT: A. Medications: 10 mg of Abilify every day for 14 days, Abilify Maintena 300 mg every 28 days, and the continuation of fludrocortisone 0.2 mg daily, multivitamin, polyvinyl alcohol for both eyes, sertraline 100 mg. The patient is on aripoprazole Maintena 300 mg every 4 weeks with the next injection being due on 12/16/17. She is also taking oral Abilify 10 mg by mouth daily for 14 more days. These are additions to her medication requirements. B. Her diet is regular. C. Activities as tolerated. Stacia has never used tobacco. Studies ( lipids and HA1c) were pending upon discharge. D. Followup care. Stacia will be sent to [facility]. We cannot get an appointment today as it is a federal holiday, but Stacia agrees to get that appointment herself and to follow up. E. Substance abuse followup is not applicable. HOSPITAL COURSE: Part A: Reason for admission: Stacia is a 62-year-old white female for 30+ years, brought in by her to the emergency room due to significant concerns from her daughter and her about her increasingly disorganized thoughts. She had been staying with her daughter in [place], [place], which is about an hour from [place] where her daughter works. What first alarmed her daughter who she was staying with, was that she had been starting to try to put together a new name for herself by putting together different pieces of names from other people in her family. This is not unique to her thought pattern. She likes to put together different pieces of poetry and different pieces of words and books to try to create transcendent pieces of information and meaningfulness. Nevertheless, it is unclear how successful she is in achieving this goal. Upon interview, she has slow speech. She has trouble finding words. She does not really make a lot of sense. She has a goal with painting and reading. She said that after she had cataract surgery recently she was able to read afterward. Another aspect of her presentation is that she describes paranoia which has somewhat resolved. She said that she believes others were her enemies, but now she knows they were trying to help. Still she does report feeling ill and she states "I am not crazy." Stacia has been reported by her to not have been at her psychiatric baseline over the last 2 years. She has not been functioning well he says. Her daughter has also noticed an exacerbation of symptoms when Stacia was visiting her. Her daughter brought her back to Stacia's concerned about her mom's behavior. From her daughter's reaction to her mother's bizarre behavior it would appear that this is a significant variation from typical behavior. Her primary care doctor followed her treatment with abiolaazine 8 mg following her latest 2008 admission to the [facility]. Stacia believes that it was getting in the way of her ability to create art so she asked to have it halved and then she self discontinued it. The timeline for this discontinuation is not clear. Stacia's brought her to the emergency department. The concerning behaviors included the desire to create a new name, a bizarre relief that she can deliver the Eucharist in her most original body, her tendency to try to connect sentences which are nearly incoherent into incoherent paragraphs, retarded speech, and very abstract topics without pertinence to the topic at hand. She denies hearing or seeing things that are not here. Part B: Psychiatric treatment was rendered. The patient was admitted to the Adult Behavioral Unit and placed on 15-minute checks for safety. She did well on the unit. She went to groups. She interacted well with her peers. She had two roving can tender consults from which she benefitted. She tolerated med changes and was actually excited to take medications that would help her to feel better and there was a family meeting with her when her wanted to speak alone with this provider. That meeting went well, he seems anxious about her presentation although he has in the past said that she has not been well for 2 years. Stacia is much improved. Sertaline was increased to 100 mg and aripiprazole was started PO and then additionally as a long-acting injectible ( Maintena). Her thoughts are clearer. She still has some odd ideas but these are consistent with the description of her behavior in the more distant past when she was doing well. Despite her 's concern he was willing to take her home and he and she were quite happy to be together. AMITA FLORES, PACO [id number]/[facility] #: [id number] [place]
== END 2017-11-18 13:35 | disposition home or self-care (01) | DRG 750 ==
LOC: ED 16:29 → BSU 11-11 04:56
PROVIDERS: ADMIT Psychiatry & Neurology Psychiatry; ATTEND Psychiatry & Neurology Psychiatry
PROC: GZHZZZZ Group Psychotherapy (ICD-10-PCS; principal; 2017-11-13)
DX: F20.9 Schizophrenia, unspecified (principal); F29 Unspecified psychosis not due to a substance or known physiological condition; K58.9 Irritable bowel syndrome, unspecified; G43.909 Migraine, unspecified, not intractable, without status migrainosus; F32.9 Major depressive disorder, single episode, unspecified; Z98.51 Tubal ligation status; Z98.42 Cataract extraction status, left eye; Z98.41 Cataract extraction status, right eye
CPT/HCPCS: 36415; 80053; 80307; 80320; 80329; 81003; 81015; 84443; 85025; 87086; 90853; 99222; 99231; 99232; 99238; 99284; A9270-GY; G0480

== ENCOUNTER 2019-04-05 19:06 | Emergency (ER) | payer BC, MEDICARE ==
[2019-04-05 21:43] LABS: ABS Basophils 0.1 10^3/ul (0-0.2); ABS Eosinophils 0.2 10^3/ul (0-0.6); ABS Lymphocytes 1.8 10^3/ul (1.0-4.8); ABS Monocytes 0.6 10^3/ul (0-0.8); ABS Neutrophils 4.2 10^3/ul (1.5-7.7); Eosinophil % 2.3 %; Hematocrit 34 % (35-47); Hemoglobin 11.6 g/dL (12.0-16.0); Lymphocyte % 26.2 %; Mean Corpuscular HGB Conc 34 g/dL (31-36); Mean Corpuscular Hemoglobin 32 pg (27-31); Mean Corpuscular Volume 95 fL (80-97); Mean Platelet Volume 9.5 fL (7.4-10.4); Nucleated Red Blood Cells % 0.1; Platelet Count 250 10^3/uL (150-450); Red Blood Count 3.61 10^6 /uL (3.70-4.87); Red Cell Distribution Width 13 % (10-15); White Blood Count 6.8 10^3/uL (3.5-10.8)
[2019-04-05 22:00] LABS: Albumin 3.9 g/dL (3.2-5.2); Albumin/Globulin Ratio 1.2 (1-3); BUN/Creatinine Ratio 10.5 (8-20); C Reactive Protein 1.2 mg/L (<8.01); Calcium 8.9 mg/dL (8.6-10.3); EGFR African American 58.1 (>60); Globulin 3.3 g/dL (2-4); Potassium 3.8 mmol/L (3.5-5.0); Total Bilirubin 0.3 mg/dL (0.2-1.0); Total Protein 7.2 g/dL (6.4-8.9)
[2019-04-05 22:22] LABS: Urine Appearance Cloudy; Urine Bacteria 1+ (Absent); Urine Bilirubin Negative (Negative); Urine Blood 1+ (Negative); Urine Color Straw; Urine Glucose Negative (Negative); Urine Ketones Negative (Negative); Urine Nitrite Negative (Negative); Urine Protein Negative (Negative); Urine Red Blood Cell Trace(0-2/hpf) (Absent); Urine Specific Gravity 1.003 (1.010-1.030); Urine Squamous Epithelial Cell Present (Absent); Urine Urobilinogen Negative (Negative); Urine White Blood Cell Trace(0-5/hpf) (Absent)
[2019-04-05] MEDS ORDERED: Polyethylene Glycol 3350* 17 GM PACKET PO ONE (22:29)
--- NOTE | 2019-04-05 22:29 | ED ---
GI/ HPI - HPI Summary HPI Summary: 63-year-old female presents with constipation for the past week. She tried some enemas any further working but now they are not. She has no history constipation. She hasn't tried anything else. Denies any bowel pain. No nausea vomiting. She states she has history of uterine prolapse. States that believes her uterine prolapse is blocking her intestines. She has not follow- up with anyone about this. No history of any abdominal surgeries. No history of bowel obstructions. Is passing gas. - History of Current Complaint Chief Complaint: EDConstipation Time Seen by Provider: 04/05/19 21:06 Stated Complaint: "MY UTERUS IS BLOCKING MY BOWELS" PER PT Pain Intensity: 2 - Additional Pertinent History Primary Care Physician: AYLIN - Allergy/Home Medications Allergies/Adverse Reactions: Allergies Allergy/AdvReac Type Severity Reaction Status Date / Time No Known Allergies Allergy Verified 04/05/19 19:11 PMH/Surg Hx/FS Hx/Imm Hx Endocrine/Hematology History: Denies: Hx Anticoagulant Therapy Cardiovascular History: Denies: Hx Pacemaker/ICD GI History: Reports: Hx Irritable Bowel History: Reports: Other Problems/Disorders - recenty has had a yeast infection Sensory History: Reports: Hx Cataracts - BILATERAL, Hx Contacts or Glasses - GLASSES Denies: Hx Hearing Aid Opthamlomology History: Reports: Hx Cataracts - BILATERAL, Hx Contacts or Glasses - GLASSES Neurological History: Reports: Hx Headaches, Hx Migraine - TWICE MONTHLY-PRN MEDICATION FOR Psychiatric History: Reports: Hx Depression - ON MEDICATION FOR, Hx Inpatient Treatment, Hx Community Mental Health Tx, Hx Suicide Attempt - 2005 by OD - Cancer History Hx Chemotherapy: No Hx Radiation Therapy: No - Surgical History Surgery Procedure, Year, and Place: 34 YEARS AGO-TUBAL LIGATION. BILATERAL BREAST AUGMENTATION Hx Anesthesia Reactions: No Infectious Disease History: No Infectious Disease History: Denies: Traveled Outside the [place] in Last 30 Days - Family History Known Family History: Positive: Non-Contributory - Social History Alcohol Use: None Substance Use Type: Reports: None Smoking Status (MU): Never Smoked Tobacco Review of Systems Negative: Fever Negative: Chest Pain Negative: Shortness Of Breath Positive: Other - constipation. Negative: Abdominal Pain All Other Systems Reviewed And Are Negative: Yes Physical Exam Triage Information Reviewed: Yes Vital Signs On Initial Exam: Initial Vitals Temp Pulse Resp BP Pulse Ox 96.7 F 71 16 142/94 98 04/05/19 19:08 04/05/19 19:08 04/05/19 19:08 04/05/19 19:08 04/05/19 19:08 Vital Signs Reviewed: Yes Appearance: Positive: Well-Appearing Skin: Positive: Warm, Dry Head/Face: Positive: Normal Head/Face Inspection Eyes: Positive: Normal, Conjunctiva Clear ENT: Positive: Pharynx normal Respiratory/Lung Sounds: Positive: Clear to Auscultation, Breath Sounds Present Cardiovascular: Positive: Normal, RRR Abdomen Description: Positive: Nontender, Soft Bowel Sounds: Positive: Present Musculoskeletal: Positive: Normal Neurological: Positive: Normal Psychiatric: Positive: Normal Diagnostics - Vital Signs Vital Signs Temp Pulse Resp BP Pulse Ox 04/05/19 19:08 96.7 F 71 16 142/94 98 - Laboratory Lab Results: Lab Results 04/05/19 04/05/19 04/05/19 Range/Units 21:36 21:36 22:00 WBC 6.8 (3.5-10.8) 10^3/uL RBC 3.61 L (3.70-4.87) 10^6 /uL Hgb 11.6 L (12.0-16.0) g/dL Hct 34 L (35-47) % MCV 95 (80-97) fL MCH 32 H (27-31) pg MCHC 34 (31-36) g/dL RDW 13 (10-15) % Plt Count 250 (150-450) 10^3/uL MPV 9.5 (7.4-10.4) fL Neut % (Auto) 61.2 % Lymph % (Auto) 26.2 % [place] % (Auto) 9.5 % Eos % (Auto) 2.3 % Baso % (Auto) 0.8 % Absolute Neuts (auto) 4.2 (1.5-7.7) 10^3/ul Absolute Lymphs (auto) 1.8 (1.0-4.8) 10^3/ul Absolute Monos (auto) 0.6 (0-0.8) 10^3/ul Absolute Eos (auto) 0.2 (0-0.6) 10^3/ul Absolute Basos (auto) 0.1 (0-0.2) 10^3/ul Absolute Nucleated RBC 0.0 10^3/ul Nucleated RBC % 0.1 Sodium 138 (135-145) mmol/L Potassium 3.8 (3.5-5.0) mmol/L Chloride 107 (101-111) mmol/L Carbon Dioxide 24 (22-32) mmol/L Anion Gap 7 (2-11) mmol/L BUN 12 (6-24) mg/dL Creatinine 1.14 H (0.51-0.95) mg/dL Est GFR ( Amer) 58.1 (>60) Est GFR (Non-Af Amer) 48.0 (>60) BUN/Creatinine Ratio 10.5 (8-20) Glucose 102 H (70-100) mg/dL Calcium 8.9 (8.6-10.3) mg/dL Total Bilirubin 0.30 (0.2-1.0) mg/dL AST 18 (13-39) U/L ALT 14 (7-52) U/L Alkaline Phosphatase 87 (34-104) U/L C-Reactive Protein 1.20 (<8.01) mg/L Total Protein 7.2 (6.4-8.9) g/dL Albumin 3.9 (3.2-5.2) g/dL Globulin 3.3 (2-4) g/dL Albumin/Globulin Ratio 1.2 (1-3) Lipase 92 H (11.0-82.0) U/L Urine Color Straw Urine Appearance Cloudy Urine pH 7.0 (5-9) Ur Specific [place] 1.003 L (1.010-1.030) Urine Protein Negative (Negative) Urine Ketones Negative (Negative) Urine Blood 1+ A (Negative) Urine Nitrate Negative (Negative) Urine Bilirubin Negative (Negative) Urine Urobilinogen Negative (Negative) Ur Leukocyte Esterase Negative (Negative) Urine WBC (Auto) Trace(0-5/hpf) (Absent) Urine RBC (Auto) Trace(0-2/hpf) (Absent) Ur Squamous Epith Cells Present A (Absent) Urine Bacteria 1+ A (Absent) Urine Glucose Negative (Negative) Result Diagrams: 04/05/19 21:36 04/05/19 21:36 Lab Statement: Any lab studies that have been ordered have been reviewed, and results considered in the medical decision making process. - Radiology abd Radiology Interpretation Completed By: ED Physician Summary of Radiographic Findings: stool throughout beside rectum, no obstruction GIGU Course/Dx - Course Course Of Treatment: 63-year-old female presents with constipation for the past week. She tried some enemas any further working but now they are not. She has no history constipation. She hasn't tried anything else. Denies any bowel pain. No nausea vomiting. She states she has history of uterine prolapse. States that believes her uterine prolapse is blocking her intestines. She has not follow-up with anyone about this. No history of any abdominal surgeries. No history of bowel obstructions. Is passing gas. On exam nontender abd. No stool in rectum felt on digital exam. X-ray shows stool diffuse throughout with no obstruction seen. wbc normal. urine likely contaminant. Will place on a course of MiraLAX and Colace. Told to follow up primary. Told follow up with nurse obgyn about prolapse. Patient understands agrees with plan. - Diagnoses Differential Diagnoses - Female: Bowel Obstruction, Constipation, Urinary Tract Infection Provider Diagnoses: Constipation Discharge - Sign-Out/Discharge Documenting (check all that apply): Patient Departure Patient Received Moderate/Deep Sedation with Procedure: No - Discharge Plan Condition: Good Disposition: HOME Prescriptions: Docusate CAP* [Colace Cap*] 100 mg PO BID #20 cap Polyethylene Glycol 3350* [Miralax*] 17 gm PO DAILY #20 packet Patient Education Materials: Constipation (ED) Referrals: Edita Kiser MD [Primary Care Provider] - Additional Instructions: follow up with nurse obgyn take miralax packet in 8 ounce of liquid daily take colace twice a day until normal bowel movement increase fiber intake Take Tylenol every 6 hours as needed for pain follow up with primary Return to ED if develop any new or worsening symptoms - Billing Disposition and Condition Condition: GOOD Disposition: Home
[2019-04-05] MEDS ORDERED: Docusate CAP* 100 MG PO ONE (22:30)
[2019-04-05 22:57] VITALS: BP 127/82
== END 2019-04-05 22:56 | disposition home or self-care (01) ==
LOC: ED 19:06
DX: K59.00 Constipation, unspecified (principal); F32.9 Major depressive disorder, single episode, unspecified; Z79.899 Other long term (current) drug therapy
CPT/HCPCS: 36415; 74019; 80053; 81003; 81015; 83690; 85025; 86140; 87086; 99282; A9270-GY

== ENCOUNTER 2022-09-11 05:55 | Inpatient (IN) ==
[~2022-09-11 05:55] MED LIST changes: -Acetaminophen TAB* 325 MG PO PRN; -Buffered Lidocaine 0.9% SYRIN* 5 ML/SYR SYRINGE INTRADERM ONE; +Buffered Lidocaine 1% SYRIN 1 ml INTRADERM ONE; +Lactated Ringers 1000 ml BAG 1,000 ML IV SCH
[2022-09-11] MEDS ORDERED: ceFAZolin 2 GM PREMIX 2 GM/50 ML BAG ONE (06:21)
[2022-09-11] MEDS ORDERED: Propofol 10 mg/ml 100 ML BTL 100 ML ONE (06:56)
[2022-09-11] MEDS ORDERED: Phenylephrine IV 10 MG/ML 1 ml VIAL ONE (06:59)
[2022-09-11] MEDS ORDERED: Dexamethasone IV 4 MG/ML VIAL 1 ml VIAL ONE ×2 (07:05→13:43)
[2022-09-11] MEDS ORDERED: Ondansetron 4 mg VIAL 2 MG/ML 2 ml VIAL ONE ×2 (07:05→13:43)
[2022-09-11] MEDS ORDERED: Midazolam 2 mg/2 ml VIAL 1 mg/ml 2 ml VIAL (2 mg) ONE (07:12)
[2022-09-11] MEDS ORDERED: fentaNYL 100 mcg/2 ml 50 MCG/ML VIAL ONE ×2 (07:12→13:41)
[2022-09-11] MEDS ORDERED: Bupivacaine 0.25% SDV 30 ML ONE ×2 (07:17→13:27)
[2022-09-11] MEDS ORDERED: Propofol 10 MG/ML 20 ML BTL ONE (12:12)
[2022-09-11] MEDS ORDERED: Rocuronium 50 mg VIAL 10 mg/ml 5 ml VIAL (50 mg) ONE (12:12)
[2022-09-11] MEDS ORDERED: Succinylcholine 200 mg VIAL 20 mg/ml 10 ml VIAL (200 mg) ONE (13:43)
[2022-09-11] MEDS ORDERED: BUPIVACAINE **LIPOSOME/PF 13.3 MG/ML (266MG/ 20ML) VIAL (RESTRICTED) INFIL ONE (14:00)
[2022-09-11] MEDS ORDERED: HYDROmorphone 0.5 MG/0.5 ML SYRINGE ONE ×3 (14:41→15:33)
[2022-09-11] MEDS ORDERED: Acetaminophen IV 1 GM/100ML 1,000 MG/100 ML BAG IV ONE ×2 (14:55→16:16)
[2022-09-11] MEDS ORDERED: fentaNYL 100 mcg/2 ml 50 MCG/ML VIAL IV PRN (14:55)
[2022-09-11] MEDS ORDERED: Ondansetron 4 mg VIAL 2 MG/ML 2 ml VIAL IV PRN ×2 (14:55→16:56)
[2022-09-11] MEDS ORDERED: HYDROmorphone 1 MG/1 ML SYRINGE IV PRN (14:55)
[2022-09-11] MEDS ORDERED: Naloxone 0.4 mg VIAL 0.4 mg/ml 1 ml VIAL IV PRN (14:55)
[2022-09-11] MEDS ORDERED: Ketamine HCL 50 mg/ml 10 ml VIAL (500 MG) ONE (14:57)
[2022-09-11] MEDS ORDERED: Labetalol IV 5 MG/ML 20 ml VIAL ONE (16:46)
[2022-09-11] MEDS ORDERED: Ondansetron ODT 4 mg TAB 4 MG TAB PO PRN (16:56)
[2022-09-11] MEDS ORDERED: Magnesium Hydroxide LIQ 30 ML UDC PO PRN (16:56)
[2022-09-11] MEDS ORDERED: Lactulose 30 ml UDC PO PRN (16:56)
[2022-09-11] MEDS ORDERED: Morphine 2 MG/ML SYRINGE IV PRN (16:56)
[2022-09-11] MEDS ORDERED: Labetalol IV 5 MG/ML 20 ml VIAL IV PUSH PRN (17:22)
[2022-09-11] MEDS ORDERED: hydrALAZINE 20 mg/ml 1 ML Vial IV IV SLOW PU PRN (17:22)
[2022-09-11] MEDS: Lactated Ringers 1000 ml BAG 1,000 ML IV SCH (20:28)
[2022-09-11] MEDS: Magnesium Hydroxide LIQ 30 ML UDC PO SCH (22:28)
[2022-09-11] MEDS: ceFAZolin 1 GM ADVAN 1 GM in NS 0.9% 50 ML 50 ML IVPB SCH (22:30)
[2022-09-12 05:58] LABS: Hematocrit 33 % (35-47); Hemoglobin 10.7 g/dL (12.0-16.0); Mean Platelet Volume 9.7 fL (7.4-10.4); Platelet Count 234 10^3/uL (150-450)
[2022-09-12] MEDS: ceFAZolin 1 GM ADVAN 1 GM in NS 0.9% 50 ML 50 ML IVPB SCH (06:24)
[2022-09-12] MEDS: Lactated Ringers 1000 ml BAG 1,000 ML IV SCH (06:25)
[2022-09-12 06:35] LABS: Calcium 8.3 mg/dL (8.6-10.3); Potassium 4.6 mmol/L (3.5-5.0); eGFR CKD-EPI 56.6 (>60)
[2022-09-12] MEDS: Magnesium Hydroxide LIQ 30 ML UDC PO SCH (08:52)
[2022-09-12] MEDS ORDERED: Vitamin THERAPEUTIC TAB PO SCH (09:00)
[2022-09-12 11:28] VITALS: BP 126/80
== END 2022-09-12 13:05 | disposition home or self-care (01) | DRG 470 ==
LOC: SSU 05:55 → OR 05:55 → OBSVTOIN 19:12
PROVIDERS: ADMIT Orthopaedic Surgery Sports Medicine; ATTEND Orthopaedic Surgery Sports Medicine